=== PATIENT | female | born 1965 | race Caucasian/White ===

== ENCOUNTER 2016-07-28 12:26 | Emergency (ER) | payer BC ==
[~2016-07-28] VITALS: Ht 167.6 cm; Wt 70.3 kg
[~2016-07-28 12:26] MED LIST: LEVSIN SL; PEPCID PO; REGLAN PO; ZOFRAN SL
--- NOTE | 2016-07-28 13:28 | ED CARDIAC/CP/PALPITATIONS ---
History of Present Illness General Chief Complaint: Chest Pain Stated Complaint: SENT BY WALK-IN FOR CHEST PAIN Source: patient Exam Limitations: no limitations Vital Signs & Intake/Output Vital Signs & Intake/Output Vital Signs Date Time Temp Pulse Resp B/P B/P Pulse O2 O2 Flow FiO2 Mean Ox Delivery Rate 07/28 1836 97.2 64 20 140/81 98 Room Air 07/28 1613 97.7 60 16 112/64 97 Room Air 07/28 1238 97.8 70 14 145/79 98 Room Air Allergies Coded Allergies: erythromycin base (RASH ON STOMACH 07/28/16) neomycin (UNKNOWN 05/31/15) polymyxin B (UNKNOWN 05/31/15) tetracycline (RASH ON STOMACH 07/28/16) Triage Note: 50 Y/O FEMALE C/O INTERMITTENT MID STERNAL CHEST PAIN SINCE WEDNESDAY; STATES EPISODE HAPPENED ONCE SAT AND THEN AGAIN THIS MORNING. PAIN LASTS APPROX 3 MINUTES PER PT. ALSO C/O PAIN BETWEEN SHOULDER BLADES OVER THE WEEKEND. DENIES NOTICING SOB BUT FELT "LIKE PASSING OUT" AND "CLAMMY". STATES "I FEEL LIKE IM COMING DOWN WITH A CHEST COLD". EKG COMPLETED AND SIGNED BY . Triage Nurses Notes Reviewed? yes Onset: Abrupt Duration: minute(s): (3), constant, intermittent Timing: recent history Quality/Severity: moderate, severe, sharp Radiation: no radiation HPI: 50-year-old female comes into emergency room with complaints of intermittent chest pain has been going on for the past 3 days. Patient reports that she gets some associated lightheadedness and dizziness with the symptoms. She describes it as a heaviness with an intermittent times of feeling sharp. Denies any nausea or vomiting. Denies any shortness of breath. Nothing seems to make the symptoms better or worse. Denies any prior cardiac history. There is no family history of heart disease less than 55 years of age. She does not take medications for anything. (MARCO ANTONIO GARCIA,KAROLINA) Reconcile Medications Levothyroxine Sodium 50 MCG TABLET 1 TAB PO DAILY THYROID (Reported) Sertraline HCl 50 MG TABLET 1 TAB PO DAILY MENTAL HEALTH (Reported) (MAHOGANY GOLDEN,ALEC) Past History Travel History Traveled to [place] past 21 day No Medical History Any Pertinent Medical History? see below for history Neurological: NONE EENT: NONE Cardiovascular: NONE Respiratory: NONE Gastrointestinal: NONE Hepatic: NONE Renal: NONE Musculoskeletal: NONE Psychiatric: depression Endocrine: hyperthyroidism Blood Disorders: NONE Cancer(s): NONE OTHER SPORTS COACH OR INSTRUCTOR/Reproductive: NONE Surgical History Surgical History: non-contributory Psychosocial History What is your primary language Gibraltarian Tobacco Use: Quit >30 days ago Family History Hx Contributory? No (KAROLINA PENA) Review of Systems Review of Systems Constitutional: Reports: no symptoms. EENTM: Reports: no symptoms. Respiratory: Reports: no symptoms. Cardiovascular: Reports: see HPI. GI: Reports: no symptoms. Genitourinary: Reports: no symptoms. Musculoskeletal: Reports: no symptoms. Skin: Reports: no symptoms. Neurological/Psychological: Reports: no symptoms. Hematologic/Endocrine: Reports: no symptoms. Immunologic/Allergic: Reports: no symptoms. All Other Systems: Reviewed and Negative (KAROLINA PENA) Physical Exam Physical Exam General Appearance: well developed/nourished, alert, awake Head: atraumatic, normal appearance Eyes: Bilateral: normal appearance, EOMI. Ears, Nose, Throat: normal ENT inspection, hearing grossly normal Neck: normal inspection Respiratory: normal breath sounds, no respiratory distress Cardiovascular: regular rate/rhythm Gastrointestinal: soft Back: normal inspection Extremities: normal range of motion, no edema Neurologic/Psych: awake, alert, oriented x 3 Skin: intact, normal color Core Measures ACS in differential dx? Yes Severe Sepsis Present: No Septic Shock Present: No (KAROLINA PENA) Progress Differential Diagnosis: AMI, aortic dissection, atrial fibrillation, costochondritis, hyperkalemia, hypovolemia, hyperthyroid, hyperventilation, musculoskeletal pain, myocarditis, pancreatitis, pericarditis, pneumonia, PSVT, pulmonary embolism, PUD/GERD, PVCs/PACs, unstable angina, V-fib/V-Tach, WPW syndrome Plan of Care: Orders Procedure Date/time Status Regular Diet 07/29 B Active TROPONIN LEVEL 07/28 1750 Complete EKG 07/28 1750 Active Telemetry/Director Of Retail Operations 07/28 1327 Active TROPONIN LEVEL 07/28 1327 Complete D-DIMER 07/28 1327 Complete COMPREHENSIVE METABOLIC PANEL 07/28 1327 Complete CBC WITHOUT DIFFERENTIAL 07/28 1327 Complete EKG 07/28 1228 Active Laboratory Tests 07/28/16 1748: Troponin I < 0.01 07/28/16 1348: Anion Gap 9, Estimated GFR > 60, BUN/Creatinine Ratio 28.3 H, Glucose 95, Calcium 9.0, Total Bilirubin 0.4, AST 28, ALT 34, Alkaline Phosphatase 109, Troponin I < 0.01, Total Protein 7.2, Albumin 4.5, Globulin 2.7, Albumin/ Globulin Ratio 1.7, D-Dimer < 200, CBC w Diff NO MAN DIFF REQ, RBC 4.68, MCV 90.1, MCH 31.1 H, RDW 12.6, MPV 7.6, Gran % 66.1, Lymphocytes % 25.6, Monocytes % 6.1, Eosinophils % 1.9, Basophils % 0.3, Absolute Granulocytes 3.8, Absolute Lymphocytes 1.5, Absolute Monocytes 0.3, Absolute Eosinophils 0.1, Absolute Basophils 0, PUBS MCHC 34.5 Diagnostic Imaging: Viewed by Me: Radiology Read. Discussed w/RAD: Radiology Read. Radiology Impression: SERVICE DATE: 07/28/16 EXAM TYPE: RAD - XRY-CHEST XRAY, PA AND LATERAL EXAMINATION: CHEST 2 VIEWS CLINICAL INFORMATION: Chest pain. COMPARISON: 05/31/2015. TECHNIQUE: PA and lateral views of the chest were obtained. FINDINGS: The cardiac silhouette is not enlarged. The mediastinal and hilar contours are unremarkable. There are neither pleural effusions nor pneumothoraces. There are no consolidations. There is mild to moderate rightward curvature to the thoracic spine. The osseous structures are otherwise unremarkable. IMPRESSION: No evidence for acute disease. DICTATED BY: KINGSTON TENA MD DATE/TIME DICTATED:07/28/161352 FIELD SERVICE POULTRY TECHNICIAN:BRET Initial ED EKG: normal intervals, normal p-waves, normal sinus rhythm, rate (64) , nonspecific ST T wave chg Prior EKG: unchanged Repeat EKG: unchanged Comments: 07/28/2016 7:02:37 PM Case was discussed with Dr. Lambert as well as Dr. mae. Patient clinically looks well. Nontoxic-appearing. Currently asymptomatic. 2 unchanged EKGs. 2 normal troponins. Negative d-dimer. Etiology of pain is unclear but does not appear to be cardiac related at this time. Patient was recommended to follow of her for outpatient cardiac workup. Return if any concerns worsening symptoms. Patient was reevaluated multiple times and continued to remain in no apparent distress resting comfortably in room. Patient understands and agrees with plan of care. (KAROLINA PENA) Departure Departure Disposition: HOME OR SELF CARE Condition: Stable Clinical Impression Primary Impression: Atypical chest pain Referrals: MAGDY GOLDEN,JOLENE KHALIL (PCP/Family) VIK GOLDEN,CR Additional Instructions: Follow-up with embalmer assistant provided for further evaluation and workup. Return if any concerns worsening of symptoms. Please go over all results of today's visit with your primary care doctor. Contact your primary care doctor to let them know you were here in the emergency room. There may be nonspecific findings which may not be related to your visit today here in the emergency room but may require further evaluation and chronic monitoring by your primary care doctor. If you had a laceration today the chance of foreign body always remains. You should follow-up with your primary care doctor for recheck in 3-5 days for a wound check. If you had an x-ray done there is a chance that a fracture could have been missed on initial read and you should follow-up with your primary care doctor for repeat x-rays if symptoms persist. If your blood pressure was elevated here in the emergency room please have rechecked by her primary care doctor within the next 48 hours by your primary care doctor. If you were prescribed a narcotic here in the emergency room or any type of controlled substances you're not allowed to drive while taking this medication or operate any type of heavy machinery. Narcotics can make you feel lightheaded dizziness nausea and can cause constipation. You may need to mushroom picker a stool softener. Thank you for choosing [facility] emergency room. Please return to the emergency room immediately if you have any other concerns worsening of symptoms. Departure Forms: Customer Survey General Discharge Information (KAROLINA PENA) PA/ADVERTISING ASSISTANT MANAGER Co-Sign Statement Statement: ED Attending supervision documentation- [] I saw and evaluated the patient. I have also reviewed all the pertinent lab results and diagnostic results. I agree with the findings and the plan of care as documented in the PA's/ADVERTISING ASSISTANT MANAGER's documentation. [X] I have reviewed the ED Record and agree with the PA's/ADVERTISING ASSISTANT MANAGER's documentation. [] Additions or exceptions (if any) to the PAs/ADVERTISING ASSISTANT MANAGER's note and plan are summarized below: [] (MAHOGANY GOLDEN,ALEC) Critical Care Note Critical Care Note Critical Care Time: non-applicable (MARCO ANTONIO GARCIA,KAROLINA)
--- NOTE | 2016-07-28 13:58 | RADIOLOGY REPORT ---
EXAMINATION: CHEST 2 VIEWS CLINICAL INFORMATION: Chest pain. COMPARISON: 05/31/2015. TECHNIQUE: PA and lateral views of the chest were obtained. FINDINGS: The cardiac silhouette is not enlarged. The mediastinal and hilar contours are unremarkable. There are neither pleural effusions nor pneumothoraces. There are no consolidations. There is mild to moderate rightward curvature to the thoracic spine. The osseous structures are otherwise unremarkable. IMPRESSION: No evidence for acute disease.
[2016-07-28 14:05] LABS: ABSOLUTE BASOPHIL COUNT 0 /CUMM (0.0-0.2); ABSOLUTE EOSINOPHIL COUNT 0.1 /CUMM (0.0-0.7); ABSOLUTE GRANULOCYTE CT 3.8 /CUMM (1.4-6.5); ABSOLUTE LYMPH COUNT 1.5 /CUMM (1.2-3.4); ABSOLUTE MONOCYTE COUNT 0.3 /CUMM (0.10-0.60); BASOPHIL % 0.3 % (0.0-2.0); EOSINOPHIL % 1.9 % (0-5); GRANULOCYTE % 66.1 % (42.2-75.2); HEMATOCRIT 42.2 % (37-47); MEAN CORPUSCULAR HGB 31.1 PG (27.0-31.0); MEAN CORPUSCULAR HGB CONC 34.5 G/DL (33.0-37.0); MEAN CORPUSCULAR VOLUME 90.1 FL (81.0-99.0); MEAN PLATELET VOLUME 7.6 FL (7.4-10.4); PLATELET COUNT 239 /CUMM (130-400); RBC DISTRIBUTION WIDTH 12.6 % (11.5-14.5); RED BLOOD CELL CT 4.68 /CUMM (4.20-5.40); WHITE BLOOD CELL COUNT 5.7 /CUMM (4.8-10.8)
[2016-07-28] MEDS ORDERED: LEVOTHYROXINE50 MCG PO (15:36)
[2016-07-28] MEDS ORDERED: SERTRALINE HCL50 MG PO (15:36)
[2016-07-28 18:36] VITALS: BP 140/81
== END 2016-07-28 18:54 ==
LOC: ERH 12:26
PROVIDERS: Physician Assistant Medical
DX: R07.89 Other chest pain (principal); R42 Dizziness and giddiness
CPT/HCPCS: 93005; 93010